=== PATIENT | male | born 2000 | race Hispanic/Latino ===

== ENCOUNTER 2025-03-12 12:29 | Emergency (ER) | payer SELFPAY ==
[2025-03-12 12:31] VITALS: BP 125/85; PULSE 94; RESP 14; TEMP 35.7; O2SAT 98; BMI 29.3
--- NOTE | 2025-03-12 13:17 | EKG12_ITS ---
Test Reason : CP Blood Pressure : */* mmHG Vent. Rate : 80 BPM Atrial Rate : 80 BPM P-R Int : 160 ms QRS Dur : 104 ms QT Int : 346 ms P-R-T Axes : 45 -2 25 degrees QTcB Int : 399 ms Normal sinus rhythm Incomplete right bundle branch block Borderline ECG Confirmed by KEYLA BEST, NAVI ([id number]), technical writer and editor ZOE ABURTO ([id number]) on 03/13/2025 8:36:09 AM Referred By: AR/RU Confirmed By: NAVI RAMIRES MD
--- NOTE | 2025-03-12 13:17 | RAD_ITS ---
EXAM: XR Chest, 1 View CLINICAL INDICATION: DYSPNEA TECHNIQUE: Frontal view of the chest. COMPARISON: No relevant prior studies available. FINDINGS: LUNGS AND PLEURAL SPACES: Unremarkable. No consolidation. No pneumothorax. HEART: Unremarkable. No cardiomegaly. MEDIASTINUM: Unremarkable. Normal mediastinal contour. BONES/JOINTS: Unremarkable. No acute fracture. RAD/Chest 1 View (Portable) IMPRESSION: No acute cardiopulmonary process. Reading Location: [facility]
--- NOTE | 2025-03-12 13:18 | EDS_ITS ---
HPI History of Present Illness Chief Complaint: Chest Pain Detail of Chief Complaint: Difficulty breathing and chest discomfort and near syncope Informant: patient Narrative Narrative: Patient presents to the emergency department with complaint of feeling like he was going pass out this afternoon. He states that he was working when he started thinking about back home in [place] as he has been doing more so over the last 3 days. He then started breathing fast and felt like his heart was racing. He everything went black and felt like he was going to pass out. He had to hold onto somebody but did not actually pass out. He has never had an episode like this before. No history of anxiety. Patient is [place]-speaking and had to use iPad marker assembler to have marker assembler help with history taking. Patient has no medical history. He denies recent illness. PFSH PFSH Medical History no medical history Home Medications ?Medication ?Instructions ?Recorded ?Last Taken ?Type NK 03/12/25 Unknown History Allergy/AdvReac Type Severity Reaction Status Date / Time No Known Allergies Allergy Verified 03/12/25 13:14 Social History Smoking Status: Never smoker ROS ROS ED Review of Systems ROS Unobtainable: other Constitutional Constitutional ED: Reports lethargy; Denies chills, fever(s), sweats or weight loss Eyes Eyes: Denies blurry vision, change in vision or diplopia ENT ENT ED: Denies rhinorrhea or sore throat Cardiovascular Cardiovascular: Reports chest pain and racing heartbeat; Denies orthopnea Respiratory/Chest Respiratory/Chest: Reports dyspnea and dyspnea on exertion; Denies cough, orthopnea or sputum Gastrointestinal Gastrointestinal: Denies abdominal pain, diarrhea, nausea or vomiting Genitourinary Genitourinary ED: Denies dysuria, hematuria or urinary frequency Musculoskeletal Musculoskeletal: Denies arthralgias, back pain, myalgias or neck pain Integumentary Denies abscess, Abrasions or rash Neurologic Neurologic: Reports other Details: Near syncope ; Denies headache(s) or weakness Psychiatric Psychiatric: Denies anxiety, depression or suicidal thoughts Endocrine Endocrinology: Denies polydipsia, polyphagia or polyuria Hematologic/Lymphatic Hematologic/Lymphatic: Denies easy bleeding, easy bruising or lymphadenopathy Allergic/Immunologic Allergic/Immunologic ED: Denies mouth swelling, tongue swelling or urticaria EXAM Physical Exam Const Vital Signs: 03/12/25 12:31 03/12/25 13:11 Temperature 96.3 F L Temperature Source Temporal Pulse Rate 94 Respiratory Rate 14 Respiratory Effort Normal Non-Labored Blood Pressure 125/85 H Blood Pressure Mean 98 Pulse Ox 98 Oxygen Delivery Method Room Air Positive well nourished and well developed General Appearance ED: well developed and NAD HEENT Reports TM's clear and moist mucous membranes normocephalic and atraumatic; Negative for trauma or tenderness Tympanic Membrane ED: Yes TM's clear Eyes PERRL and EOMs intact bilaterally General Eye ED: Negative for pale conjunctiva or scleral icterus Neck no lymphadenopathy, supple and no JVD General: Negative for tenderness Chest Wall inspection of chest normal and palpation of chest normal Chest: Negative for tenderness Resp normal respiratory effort and clear to auscultation bilaterally Effort and Inspection: Negative for respiratory distress or pain with movement Auscultation: Negative for rhonchi, wheezes or diminished lung sounds Cardio regular rate, regular rhythm, S1 normal heart sound, S2 normal heart sound and no murmurs Peripheral Pulses: pulses 2+ throughout GI normal to inspection, nondistended, normoactive bowel sounds, soft to palpation, non-tender, non-distended and no masses Back/Spine no CVA tenderness and no thoracic nor lumbar tenderness Extremity normal to inspection General Extremety ED: Negative for edema General Extremity: Negative for edema Neuro oriented x3, CN's II-XII intact bilaterally, no sensory deficits noted and gait normal Sensorium / Orientation: awake, alert, oriented to person, oriented to place and oriented to time Motor Exam: strength 5/5 throughout and strength abnormal Psych mental status grossly normal Skin no rashes or lesions noted and no wounds MDM MDM MDM Narrative Medical decision making narrative: Patient presents with complaint of rapid breathing and racing heart and feeling like he was in a pass out. Had a similar episode 4 years ago in his home country of [place] but at that time attributed to drinking red bull and he actually did pass out at that time. No significant family history of cardiac dysrhythmia or heart disease. IV line established on arrival. EKG obtained showed sinus rhythm with rate of 80 bpm with incomplete right bundle branch block. CBC with differential shows white count 9.1 with hemoglobin 15.6 and plate count of 229. Chemistries unremarkable. D-dimer less than 0.27. Troponin was normal at less than 6. 1 view chest x-ray unremarkable. Discussed results with patient. He refused IV fluids initially. At this point I suspect he may have had a vasovagal episode versus a panic attack with hyperventilation type syndrome. Will refer to primary care physician on-call for no doc for outpatient follow- up. He is advised to return to the ER for persistent tachycardia, syncope, or condition should worsen anyway Lab Data Attestation: I reviewed the patient's lab results. Labs: Laboratory Results - last 24 hr 03/12/25 13:25 WBC 9.1 RBC 5.24 Hgb 15.6 Hct 45.2 MCV 86.3 MCH 29.8 MCHC 34.5 RDW Std Deviation 39.4 RDW Coeff of Brian 12.5 Plt Count 229 MPV 10.0 Immature Gran % (Auto) 0.200 Neut % (Auto) 72.4 H Lymph % (Auto) 21.8 [place] % (Auto) 5.1 Eos % (Auto) 0.2 Baso % (Auto) 0.3 Absolute Neuts (auto) 6.6 Absolute Lymphs (auto) 1.98 Nucleated RBC % 0 D-Dimer Quant (PE/DVT) < 0.27 L Sodium 140 Potassium 3.5 Chloride 105 Carbon Dioxide 22.2 Anion Gap 12 BUN 9 Creatinine 1.07 Estim Creat Clear Calc 106.84 Est GFR (MDRD) Non-Af 98 BUN/Creatinine Ratio 8.3 L Glucose 104 H Calcium 9.1 Troponin T High Sens < 6 Radiography Diagnostic Testing: Clinical Impression(s) from Imaging Studies Chest X-Ray 03/12/25 13:17 IMPRESSION: No acute cardiopulmonary process. Reading [facility] E[facility] Initial EKG: Attestation: I personally reviewed and interpreted this EKG as follows: Comments: Sinus rhythm with ventricular rate of 80 bpm with incomplete right bundle branch block Discharge Plan Triage Chief Complaint: Chest Pain ED Provider: Jose Villanueva Dx/Rx/DC Orders Clinical Impression: Near syncope, Anxiety Instructions: ED Anxiety Reaction, ED Near-Fainting, Uncertain Cause Prescriptions: No Action NK Primary Care Provider: Care Physician,No Primary Referrals: Stella Blanton MD [Med Staff - Roller Stitcher] - 5-7 Days Care Physician,No Primary [Primary Care Provider] - Print Language: [place] Disposition Disposition: Home, Self Care
[2025-03-12 13:45] LABS: Hematocrit 45.2 % (40-54); Hemoglobin 15.6 g/dL (13.0-16.5); Immature Granulocytes Count 0.020 X10^3/uL (0.0-0.0); Mean Corp Hgb Conc 34.5 g/dL (32-36); Mean Corpuscular Volume 86.3 fL (80-94); Mean Platelet Vol. 10.0 fl (6.2-12.0); NRBC Flagged by Analyzer 0 % (0-5); Platelet Count 229 K/mm3 (150-450); RBC Distribution Width CV 12.5 % (11.6-14.6); RBC Distribution Width SD 39.4 fl (35.1-43.9); Red Blood Count 5.24 M/mm3 (4.6-6.2); White Blood Count 9.1 K/mm3 (4.4-11.0)
[2025-03-12 14:15] LABS: Troponin T High Sensitivity < 6 ng/L (<=22)
[2025-03-12 14:17] LABS: Anion Gap 12 (5-15); BUN 9 mg/dL (4-19); BUN/Creat Ratio 8.3 RATIO (10-20); Calcium,Total 9.1 mg/dL (7.6-11.0); Carbon Dioxide 22.2 mmol/L (21.0-32.0); Chloride 105 mmol/L (98-108); Estimated Creatinine Clearance 106.84 ml/min (50-250); Glucose 104 mg/dL (70-99); Potassium 3.5 mmol/L (3.3-5.1)
[2025-03-12 14:26] LABS: D-Dimer Quantitative (DVT/PE) < 0.27 FEU/ug/m (0.27-0.49)
[2025-03-12 14:31] VITALS: BP 139/78; PULSE 78; RESP 14; O2SAT 98
[2025-03-12 15:05] VITALS: BP 141/78; PULSE 78; RESP 14; TEMP 36.6; O2SAT 99
== END 2025-03-12 15:05 | disposition home or self-care (01) ==
PROVIDERS: Emergency Provider Emergency Medicine; Visit Provider Emergency Medicine
DX: R07.9 Chest pain, unspecified (principal); R55 Syncope and collapse; F41.9 Anxiety disorder, unspecified
CPT/HCPCS: 71045; 80048; 84484; 85025; 85379; 93005; 99284; A4216